=== PATIENT | male | born 1975 | race Caucasian/White ===

== ENCOUNTER 2021-12-06 17:10 | Inpatient (IN) | payer OTHER ==
[2021-12-06] MEDS ORDERED: MAGNESIUM HYDROX 2400MG/30ML ORAL SUSPENSION 30 ML CUP PO PRN (20:59)
[2021-12-06] MEDS ORDERED: MENTHOL/PHENOL 1 EACH UD MM PRN (20:59)
[2021-12-06] MEDS ORDERED: METHOCARBAMOL 500 MG TABLET PO PRN (20:59)
[2021-12-06] MEDS ORDERED: DICYCLOMINE HCL 10 MG CAPSULE PO PRN (20:59)
[2021-12-06] MEDS ORDERED: MAG HYDROX/AL HYDROX/SIMETH 30 ML UNIT-DOSE CUP PO PRN (20:59)
[2021-12-06] MEDS ORDERED: methaDONE HCL 10 MG TABLET (FOR DETOX USE ONLY) PO ONE (20:59)
[2021-12-06] MEDS ORDERED: NALOXONE HCL 0.4 MG/ML VIAL IM PRN (20:59)
[2021-12-06] MEDS ORDERED: MAGNESIUM CITRATE 300 ML BOTTLE PO PRN (20:59)
[2021-12-06] MEDS ORDERED: NICOTINE POLACRILEX 2 MG GUM BUC PRN (20:59)
[2021-12-06] MEDS ORDERED: cloNIDine HCL 0.1 MG TABLET PO PRN (20:59)
[2021-12-06] MEDS ORDERED: guaiFENesin 200 MG/10 ML 10 ML UNIT-DOSE CUPS PO PRN (20:59)
[2021-12-06] MEDS ORDERED: NALOXONE (NARCAN) HCL 4 MG/0.1 ML SPRAY NS PRN (20:59)
[2021-12-06] MEDS ORDERED: BISMUTH SUBSALICYLATE 524 MG/30 ML PO PRN (20:59)
[2021-12-06] MEDS ORDERED: LOPERAMIDE HCL 2 MG CAPSULE PO PRN (20:59)
[2021-12-06] MEDS ORDERED: ACETAMINOPHEN 325 MG TABLET (FP) PO PRN ×2 (20:59)
[2021-12-06] MEDS ORDERED: P-EPHED 60MG/TRIPROLIDI 2.5MG TABLET PO PRN (20:59)
[2021-12-06] MEDS ORDERED: IBUPROFEN 400 MG TABLET (FP) PO PRN (20:59)
[2021-12-06] MEDS ORDERED: PROCHLORPERAZINE MALEATE 5 MG TABLET PO PRN (20:59)
[2021-12-06] MEDS ORDERED: THIAMINE HCL 100 MG TABLET (FP) PO SCH (22:00)
[2021-12-06] MEDS ORDERED: MELATONIN 5 MG TABLETS PO SCH (22:00)
[2021-12-06] MEDS ORDERED: methaDONE HCL 10 MG TABLET (FOR DETOX USE ONLY) ONE (22:10)
[2021-12-06 23:58] VITALS: BMI 21.8
[2021-12-07] MEDS ORDERED: methaDONE HCL 10 MG TABLET (FOR DETOX USE ONLY) ONE (09:00)
[2021-12-07] MEDS ORDERED: PRENATAL VITAMINS W/ FOLIC ACID TABLET (FP) PO SCH (10:00)
[2021-12-07] MEDS ORDERED: NICOTINE 21 MG/24 HOURS TOPICAL PATCH TD SCH (10:00)
[2021-12-07 12:08] LABS: HEMATOCRIT 45.6 % (35.4-49); HEMOGLOBIN 15.2 GM/dL (11.7-16.9); MCHC 33.4 g/dl (32.0-35.9); MEAN CELL VOLUME 92.9 fl (80-96); MEAN PLT VOLUME 8.6 fl (7.5-11.1); PLATELET COUNT 246 10^3/uL (134-434); RBC 4.91 M/mm3 (4.00-5.60); RDW 13.5 % (11.9-15.9); WHITE BLOOD COUNT 8.5 K/mm3 (4.0-10.0)
[2021-12-07 12:16] LABS: ALBUMIN 3.5 g/dl (3.4-5.0); BLOOD UREA NITROGEN 11.2 mg/dL (7-18); CALCIUM 8.8 mg/dL (8.5-10.1)
[2021-12-07 12:19] LABS: BILIRUBIN,TOTAL 0.7 mg/dL (0.2-1); TOT PROT 7.4 g/dl (6.4-8.2)
[2021-12-07 12:21] LABS: CREATININE 0.7 mg/dL (0.55-1.3)
[2021-12-07] MEDS ORDERED: FLU VACC QS2021-22(6MOS UP)/PF 60 MCG/0.5 ML SYRINGE IM ONE (13:00)
[2021-12-07 13:13] VITALS: BP 142/93; PULSE 99; TEMP 96.9
[2021-12-07 15:43] LABS: HIV INTERPRETATION NEGATIVE (NEGATIVE)
[2021-12-07] MEDS ORDERED: SUVOREXANT 10 MG TABLET PO PRN (22:00)
[2021-12-08] MEDS ORDERED: methaDONE HCL 10 MG TABLET (FOR DETOX USE ONLY) PO ONE (10:00)
[2021-12-08 14:07] LABS: SARS-CoV-2 NAA Not Detected (Not Detected)
[2021-12-10] MEDS ORDERED: methaDONE HCL 10 MG TABLET (FOR DETOX USE ONLY) PO ONE (10:00)
== END 2021-12-07 15:38 | disposition other institution (70) | DRG 773 ==
LOC: YASAS 17:10 → Y3N 22:28
PROVIDERS: ADMIT Allergy & Immunology; ATTEND Allergy & Immunology
PROC: HZ2ZZZZ Detoxification Services for Substance Abuse Treatment (ICD-10-PCS; principal; 2021-12-06)
DX: F11.23 Opioid dependence with withdrawal (principal); F10.20 Alcohol dependence, uncomplicated; F14.20 Cocaine dependence, uncomplicated; F17.210 Nicotine dependence, cigarettes, uncomplicated; F19.282 Other psychoactive substance dependence with psychoactive substance-induced sleep disorder; F19.24 Other psychoactive substance dependence with psychoactive substance-induced mood disorder; B19.20 Unspecified viral hepatitis C without hepatic coma; J45.20 Mild intermittent asthma, uncomplicated; M54.50 Low back pain, unspecified; G89.29 Other chronic pain; R46.89 Other symptoms and signs involving appearance and behavior; Z56.0 Unemployment, unspecified; Z59.00 Homelessness unspecified
CPT/HCPCS: 36415; 80053; 85027; 86780; 87389; 87811; C9803; U0003; U0005

== ENCOUNTER 2021-12-07 15:05 | Inpatient (IN) | payer OTHER ==
[2021-12-07] MEDS ORDERED: LOPERAMIDE HCL 2 MG CAPSULE PO PRN (15:11)
[2021-12-07] MEDS ORDERED: guaiFENesin 200 MG/10 ML 10 ML UNIT-DOSE CUPS PO PRN (15:11)
[2021-12-07] MEDS ORDERED: MENTHOL/PHENOL 1 EACH UD MM PRN (15:11)
[2021-12-07] MEDS ORDERED: P-EPHED 60MG/TRIPROLIDI 2.5MG TABLET PO PRN (15:11)
[2021-12-07] MEDS ORDERED: MAG HYDROX/AL HYDROX/SIMETH 30 ML UNIT-DOSE CUP PO PRN (15:11)
[2021-12-07] MEDS ORDERED: ACETAMINOPHEN 325 MG TABLET (FP) PO PRN (15:11)
[2021-12-07] MEDS ORDERED: MAGNESIUM CITRATE 300 ML BOTTLE PO PRN (15:11)
[2021-12-07] MEDS ORDERED: NICOTINE 10 MG CARTRIDGE (INHALER) IH PRN (15:11)
[2021-12-07] MEDS ORDERED: MAGNESIUM HYDROX 2400MG/30ML ORAL SUSPENSION 30 ML CUP PO PRN (15:11)
[2021-12-07] MEDS: hydrOXYzine PAMOATE 25 MG CAPSULE (FP) PO SCH ×2 (19:37→22:09)
[2021-12-07] MEDS ORDERED: MELATONIN 5 MG TABLETS PO SCH (22:00)
[2021-12-07] MEDS: THIAMINE HCL 100 MG TABLET (FP) PO SCH (22:09)
[2021-12-07] MEDS: SUVOREXANT 10 MG TABLET PO PRN (22:09)
[2021-12-07] MEDS: IBUPROFEN 400 MG TABLET (FP) PO PRN (23:12)
[2021-12-08] MEDS ORDERED: methaDONE HCL 10 MG TABLET ONE (04:44)
[2021-12-08] MEDS ORDERED: methaDONE HCL 40 MG DISPERSABLE TABLET ONE (04:44)
[2021-12-08] MEDS: hydrOXYzine PAMOATE 25 MG CAPSULE (FP) PO SCH ×5 (05:03→21:25)
[2021-12-08] MEDS ORDERED: methaDONE HCL 10 MG TABLET PO ONE (06:00)
[2021-12-08] MEDS ORDERED: methaDONE 40 MG, methaDONE 10 MG PO ONE (06:00)
[2021-12-08] MEDS ORDERED: ONDANSETRON *ODT* 4 MG TABLET SL ONE (07:33)
[2021-12-08] MEDS: NICOTINE 7 MG/24 HOURS TOPICAL PATCH TD SCH (10:29)
[2021-12-08] MEDS: PRENATAL VITAMINS W/ FOLIC ACID TABLET (FP) PO SCH (10:29)
[2021-12-08] MEDS: IBUPROFEN 400 MG TABLET (FP) PO PRN (12:57)
[2021-12-08] MEDS: THIAMINE HCL 100 MG TABLET (FP) PO SCH (21:25)
[2021-12-08] MEDS: SUVOREXANT 10 MG TABLET PO PRN (21:26)
[2021-12-09] MEDS ORDERED: methaDONE HCL 40 MG DISPERSABLE TABLET ONE (04:03)
[2021-12-09] MEDS ORDERED: methaDONE HCL 10 MG TABLET ONE (04:03)
[2021-12-09] MEDS ORDERED: methaDONE HCL 10 MG TABLET PO ONE (06:00)
[2021-12-09] MEDS ORDERED: methaDONE 40 MG, methaDONE 20 MG PO ONE (06:00)
[2021-12-09] MEDS: hydrOXYzine PAMOATE 25 MG CAPSULE (FP) PO SCH ×3 (06:38→14:15)
[2021-12-09] MEDS: PRENATAL VITAMINS W/ FOLIC ACID TABLET (FP) PO SCH (10:17)
[2021-12-09] MEDS: NICOTINE 7 MG/24 HOURS TOPICAL PATCH TD SCH (10:17)
[2021-12-09] MEDS ORDERED: TRIMETHOBENZAMIDE HCL 200MG/2ML INJ IM PRN (14:48)
[2021-12-09 17:07] VITALS: BP 152/97; PULSE 104; TEMP 98.6
[2021-12-10] MEDS ORDERED: methaDONE HCL 10 MG TABLET PO ONE (06:00)
[2021-12-10] MEDS ORDERED: methaDONE 40 MG, methaDONE 30 MG PO ONE (06:00)
[2021-12-11] MEDS ORDERED: methaDONE HCL 40 MG DISPERSABLE TABLET PO ONE (06:00)
[2021-12-12] MEDS ORDERED: methaDONE HCL 40 MG DISPERSABLE TABLET PO SCH (06:00)
[2021-12-12] MEDS ORDERED: methaDONE 80 MG, methaDONE 10 MG PO SCH (06:00)
== END 2021-12-09 22:15 | disposition left against medical advice (07) | DRG 770 ==
LOC: YASAS 15:05 → Y3W 15:07
PROVIDERS: ADMIT Allergy & Immunology; ATTEND Allergy & Immunology
PROC: HZ42ZZZ Group Counseling for Substance Abuse Treatment, Cognitive-Behavioral (ICD-10-PCS; principal; 2021-12-07)
DX: F11.20 Opioid dependence, uncomplicated (principal); F14.20 Cocaine dependence, uncomplicated; F17.210 Nicotine dependence, cigarettes, uncomplicated; F19.282 Other psychoactive substance dependence with psychoactive substance-induced sleep disorder; F19.24 Other psychoactive substance dependence with psychoactive substance-induced mood disorder; F99 Mental disorder, not otherwise specified; B18.2 Chronic viral hepatitis C; J45.20 Mild intermittent asthma, uncomplicated; R10.9 Unspecified abdominal pain; R11.2 Nausea with vomiting, unspecified; R46.89 Other symptoms and signs involving appearance and behavior
CPT/HCPCS: Q0162

== ENCOUNTER 2021-12-09 17:27 | Emergency (ER) | payer OTHER ==
[2021-12-09] MEDS ORDERED: SODIUM CHLORIDE 0.9% 500 ML INFUS.BAG IV ONE (18:01)
[2021-12-09] MEDS ORDERED: FAMOTIDINE 20 MG/50 ML IVPB 20 MG/50 ML MG IVPB ONE ×2 (18:01→18:13)
[2021-12-09] MEDS ORDERED: ACETAMINOPHEN 1000 MG/100 ML BAG IVPB ONE (18:02)
[2021-12-09 18:09] VITALS: BP 146/97; PULSE 90; TEMP 99.4; BMI 26.6
[2021-12-09] MEDS ORDERED: ACETAMINOPHEN INJECTION 100 ML IVPB ONE (18:12)
[2021-12-09] MEDS ORDERED: ALBUTEROL SO4 HFA INHALER IH ONE ×2 (18:14→18:58)
[2021-12-09 19:36] LABS: ALBUMIN 3.8 g/dl (3.4-5.0); BASO % 1.2 % (0-2.0); CALCIUM 9.4 mg/dL (8.5-10.1); EOS % 0.4 % (0-4.5); HEMATOCRIT 51.6 % (35.4-49); HEMOGLOBIN 17.9 GM/dL (11.7-16.9); LYMPH % 30.6 % (8-40); MCH 31.3 pg (25.7-33.7); MCHC 34.6 g/dl (32.0-35.9); MEAN CELL VOLUME 90.3 fl (80-96); MEAN PLT VOLUME 7.9 fl (7.5-11.1); MONO % 10.9 % (3.8-10.2); NEUT % 56.9 % (42.8-82.8); PLATELET COUNT 325 10^3/uL (134-434); RBC 5.72 M/mm3 (4.00-5.60); RDW 13.6 % (11.9-15.9); WHITE BLOOD COUNT 10.3 K/mm3 (4.0-10.0)
[2021-12-09 19:37] LABS: BLOOD UREA NITROGEN 22.9 mg/dL (7-18); MAGNESIUM 2.5 mg/dL (1.8-2.4)
[2021-12-09 19:39] LABS: CREATININE 0.8 mg/dL (0.55-1.3)
[2021-12-09 19:40] LABS: PHOSPHOROUS 4.3 mg/dL (2.5-4.9)
[2021-12-09 19:41] LABS: BILIRUBIN,TOTAL 0.6 mg/dL (0.2-1); TOT PROT 8.3 g/dl (6.4-8.2)
== END 2021-12-09 19:50 | disposition left against medical advice (07) ==
LOC: JER 17:27
PROC: 3E0333Z Introduction of Anti-inflammatory into Peripheral Vein, Percutaneous Approach (ICD-10-PCS; principal; 2021-12-09)
PROC: 3E033GC Introduction of Other Therapeutic Substance into Peripheral Vein, Percutaneous Approach (ICD-10-PCS; 2021-12-09)
DX: F11.23 Opioid dependence with withdrawal (principal); J45.20 Mild intermittent asthma, uncomplicated
CPT/HCPCS: 36415; 71046-TC-FY; 80053; 83690; 83735; 84100; 84484; 85025; 96374; 96375; 99285-25